=== PATIENT | male | born 1995 | race Caucasian/White ===

== ENCOUNTER 2017-12-11 14:42 | Emergency (ER) | payer OTHER ==
[2017-12-11 15:00] VITALS: BP 127/61; PULSE 92; RESP 18; TEMP 98.2; O2SAT 100
--- NOTE | 2017-12-11 15:58 | ED PDOC ---
HPI: CCC, URI, Sore Throat Time Seen by Provider: 12/11/17 14:53 Chief Complaint (Nursing): ENT Problem Chief Complaint (Provider): Right ear pain x 3 days History Per: Patient History/Exam Limitations: no limitations Onset/Duration Of Symptoms: Days Current Symptoms Are (Timing): Still Present Location Of Pain: Ear(s) Ear Symptoms: Right: Ear Pain Severity: Moderate Pain Scale Rating Of: 4 Past Medical History Reviewed: Historical Data, Nursing Documentation, Vital Signs Vital Signs: Last Vital Signs Temp 98.2 F 12/11/17 14:58 Pulse 92 H 12/11/17 14:58 Resp 18 12/11/17 14:58 BP 127/61 12/11/17 14:58 Pulse Ox 100 12/11/17 14:58 - Medical History PMH: No Chronic Diseases - Surgical History Surgical History: No Surg Hx - Family History Family History: States: No Known Family Hx - Living Arrangements Living Arrangements: With Family - Home Medications Home Medications: Ambulatory Orders Medication Instructions Recorded Amoxicillin 875 mg PO BID #20 tab 12/11/17 - Allergies Allergies/Adverse Reactions: Allergies Allergy/AdvReac Type Severity Reaction Status Date / Time No Known Allergies Allergy Verified 12/11/17 14:58 Review of Systems ROS Statement: Except As Marked, All Systems Reviewed And Found Negative Constitutional: Negative for: Fever, Chills ENT: Positive for: Ear Pain Cardiovascular: Negative for: Chest Pain, Palpitations Respiratory: Negative for: Cough, Shortness of Breath Physical Exam - Reviewed Nursing Documentation Reviewed: Yes Vital Signs Reviewed: Yes - Physical Exam Appears: Positive for: Well, Non-toxic, No Acute Distress Head Exam: Positive for: ATRAUMATIC, NORMAL INSPECTION, NORMOCEPHALIC Skin: Positive for: Normal Color, Warm, DRY Eye Exam: Positive for: Normal appearance ENT: Positive for: TM Is/Are (Erythema without perforation of the right TM). Negative for: Normal ENT Inspection Neck: Positive for: Normal Cardiovascular/Chest: Negative for: Tachycardia Respiratory: Negative for: Accessory Muscle Use, Respiratory Distress Gastrointestinal/Abdominal: Positive for: Normal Exam, Soft Back: Positive for: Normal Inspection Extremity: Positive for: Normal ROM Neurologic/Psych: Positive for: Alert, Oriented - ECG O2 Sat by Pulse Oximetry: 100 Medical Decision Making Medical Decision Making: Discussed full course of antibiotics. Disposition - Clinical Impression Clinical Impression: Otitis media - Patient ED Disposition Is Patient to be Admitted: No Counseled Patient/Family Regarding: Diagnosis, Need For Followup, Rx Given - Disposition Disposition: Routine/Home Disposition Time: 15:55 Condition: GOOD Prescriptions: Amoxicillin 875 mg PO BID #20 tab Instructions: Ear Infections (Otitis Media)
== END 2017-12-11 15:59 | disposition home or self-care (01) ==
LOC: H.ER 14:42
DX: H66.91 Otitis media, unspecified, right ear (principal)